=== PATIENT | female | born 1980 | race Two or more races ===

== ENCOUNTER 2020-08-02 18:41 | Emergency (ER) | payer SELFPAY ==
[~2020-08-02 18:41] MED LIST: IBUPROFEN800 MG PO
[2020-08-02] MEDS ORDERED: PERCOCET 5/325 T1 EA PO (22:39)
== END 2020-08-02 23:24 | disposition home or self-care (01) ==
LOC: ER1 18:41
DX: S52.571A Other intraarticular fracture of lower end of right radius, initial encounter for closed fracture (principal); W01.10XA Fall on same level from slipping, tripping and stumbling with subsequent striking against unspecified object, initial encounter
CPT/HCPCS: 29125; 73110; 73200; 99284